=== PATIENT | female | born 1965 | race Asian ===

== ENCOUNTER 2023-09-04 14:39 | Emergency (ER) | payer BC, MEDICAID ==
[~2023-09-04] VITALS: Ht 157.5 cm; Wt 55.0 kg
[2023-09-04 14:56] VITALS: BP 145/85; TEMP 98.3; O2SAT 99
[2023-09-04 15:01] VITALS: PULSE 67; RESP 16
[2023-09-04 16:13] LABS: HEMOGLOBIN 14.3 g/dL (12.0-16.0); MEAN CORPUSCULAR HGB CONC 34.2 g/dL (31.0-37.0); MEAN CORPUSCULAR VOLUME 90.6 fL (81.0-99.0); PLATELET 225 x1000/uL (130-400); RED BLOOD CELL COUNT 4.63 mill/uL (4.2-5.4); RED CELL DISTRIBUTION WIDTH 12.4 % (11.6-14.6); WHITE BLOOD COUNT 6.1 x1000/uL (4.5-11.0)
== END 2023-09-04 17:37 | disposition home or self-care (01) ==
LOC: ER 14:39
DX: R04.0 Epistaxis (principal); Z90.710 Acquired absence of both cervix and uterus
CPT/HCPCS: 36415; 85027; 99283